=== PATIENT | female | born 1980 ===

== ENCOUNTER 2020-02-02 00:39 | Emergency (ER) | payer BC ==
[2020-02-02 00:53] VITALS: BP 123/84; PULSE 83; TEMP 98.1; BMI 27.4
--- NOTE | 2020-02-02 00:53 | PDOC ---
History of Present Illness - General Chief Complaint: Pain Stated Complaint: "MY RING IS STUCK ON MY FINGER" Time Seen by Provider: 02/02/20 00:52 History Source: Patient Exam Limitations: No Limitations - History of Present Illness Initial Comments: 02/02/20 00:54 39y F no pmhx presents with ring stuck on her finger. she placed a ring on her right ring finger that she hasnt worn in a while and was uanble to remove it. she had tried other things at home including soap, oil, string and was uanble to remove it and was getting more swollen. denies any numbness/tingling/weakness. no other complaints. ring is made of gold. ROS: R ring finger pain/swelling denies numbnes/tingling/weakness exam: General: well appearing, in no acute distress extremity: R ring finger: ring at base of R 4th digit with significant distal swelling. no wounds/cuts noted. perfusion intact, sensation intact distally. A&P Ring causing edema/constriction. n/v intact. Gold ring was cut off using ring cutter. No complications. ring was returned to patient. Past History - Medical History Allergies/Adverse Reactions: Allergies Allergy/AdvReac Type Severity Reaction Status Date / Time apple Allergy Mild Verified 02/02/20 00:44 Home Medications: Ambulatory Orders NK [No Known Home Medication] 02/02/20 Discharge - Discharge Information Problems reviewed: Yes Clinical Impression/Diagnosis: Ring or other jewelry causing external constriction, initial encounter Condition: Improved Disposition: HOME - Admission No - Follow up/Referral - Patient Discharge Instructions Additional Instructions: Keep your hand elevated to minimize swelling Print Language: GREENLANDIC - Post Discharge Activity
== END 2020-02-02 00:58 | disposition home or self-care (01) ==
LOC: FER 00:39
DX: M79.644 Pain in right finger(s) (principal); W49.04XA Ring or other jewelry causing external constriction, initial encounter
CPT/HCPCS: 99282-25